=== PATIENT | female | born 1995 | race African-American/Black ===

== ENCOUNTER 2021-08-01 22:18 | Emergency (ER) | payer OTHER, SELFPAY ==
--- NOTE | ~2021-08-01 | US_ITS ---
EXAMINATION: US OB <=14 wk fetus w TV DATE: 08/02/2021 01:05 INDICATION: Left pelvic pain. TECHNIQUE: Real-time transabdominal and transvaginal pelvic ultrasound was performed. COMPARISON: None. FINDINGS: TRANSABDOMINAL ULTRASOUND: The uterus measures 7.3 x 5.0 x 5.9 cm. TRANSVAGINAL ULTRASOUND: There is no visible intrauterine gestational sac. The endometrial complex me asures 13 mm in thickness. The right ovary measures 2.9 x 1.7 x 1.6 cm. The left ovary measures 4.4 x 2.9 x 2.5 cm. There is a small volume of free fluid in the pelvis. IMPRESSION: 1. No visible intrauterine gestational sac, which may be normal in early . Spontaneous abor tion and ectopic are not excluded. Serial beta hCGs are recommended. Reviewed, dictated and finalized at location A. [facility] IMPRESSION: 1. No visible intrauterine gestational sac, which may be normal in early pregn zachary. Spontaneous and ectopic are not excluded. Serial beta hCGs are recommended.
[2021-08-01 22:29] VITALS: BP 153/104; PULSE 87; RESP 17; TEMP 37.1; O2SAT 100
--- NOTE | 2021-08-01 22:44 | ED.ABDPAIN ---
HPI - Abdominal Pain General Chief Complaint: Abdominal Pain Stated Complaint: lt lower abd pain x 2 days Time Seen by Provider: 08/01/21 22:23 Source: patient Mode of arrival: ambulatory Limitations: no limitations History of Present Illness HPI narrative: Pt is a 25 y/o female, PMHx of ovarian cysts, presents to ED via POV with C/O intermittent left suprapubic abdominal pain that is sharp in quality, onset of symptoms two days ago. She denies associated fevers or chills, NV or urinary discomfort. She has no abnormal vaginal discharge and she does not believe she is . Her LMP was 07/01/2021 and she is on the control patch. This afternoon, she did have one episode of diarrhea. This is the only loose stool she has experienced and she denies hematochezia or melena .She has no additional associated symptoms and she denies modifying factors. MD elicited complaint: abdominal pain Location: suprapubic (left) Severity: moderate Quality: sharp Migration to: no migration Exacerbating factors: nothing Relieving factors: nothing Associated symptoms: diarrhea Related Data Date of Last Menstrual Period: 07/01/21 Hx Last Menstrual Period: 07/01/2021 Allergies Allergy/AdvReac Type Severity Reaction Status Date / Time No Known Allergies Allergy Unverified 05/01/18 15:49 Review of Systems Review of Systems: refer to HPI Genitourinary: Genitourinary: Reports no additional female genitourinary complaints and Reports as per HPI Exam Const: General: healthy appearing, no acute distress and alert Nutritional Appearance: obese Orientation/consciousness: patient oriented x3 HENMT: Head: normal to inspection Eyes: Pupils: Equal, round and reactive pupils present Neck: Neck: normal visual inspection Chest: Chest palpation & inspection: normal inspection of the chest Resp: Effort & Inspection: normal respiratory effort Auscultation: clear to auscultation bilaterally Cardio: Rate: regular rate GI: GI Palp: Yes Soft to palpation Percussion: Yes normal to percussion Auscultation: normal bowel sounds Other: No TTP over the adnexa or suprapubic abdomen. No rebound TTP, No CVA TTP : General: Yes no CVA tenderness Back/Spine/Pelvis: Back: no CVA tenderness Skin: General skin exam: normal color Rashes: no rashes Neuro: General: patient oriented x3, moves all extremities, no meningeal signs, no focal motor deficits and CN's II-XI intact bilaterally Cranial nerves: Yes Nystagmus not present Extrem: General: normal to inspection Psych: Mental Status: mental status grossly normal Affect: normal affect Attitude: cooperative Course Course Emergency Course: 0030: Pt's pain is controlled without intervention. UPT positive, beta quant added, US ordered to R/O ectopic given left unilateral, suprapubic abdominal pain; results pending. 0120: US report received and reviewed: no intrauterine identified, recommend FU US with beta HCG levels. Moderate pelvic free fluid, suspected left ovarian corpus luteal cyst measuring 2.1X2.1X1.6 cm. OBGYN personalized living manager for [facility] for Dr Wise paged. 0146: Pt is endorsed to Dr Wise. He requests a progesterone level prior to allowing the patient to return home; as she is hemodynamically stable and in no acute pain. SHe is advised of US report and suggestions made by Dr Wise, including FU beta HCG in 2 days, returning to the ER or proceeding to [facility] if abdominal pain worsens or becomes constant or if she has any vaginal bleeding/worsening symptoms. Pt is agreeable with plan. Vital Signs Vital signs: Vital Signs Temperature 37.1 C 08/01/21 22:29 Pulse Rate 87 08/01/21 22:29 Respiratory Rate 17 08/01/21 22:29 Blood Pressure 153/104 H 08/01/21 22:29 Pulse Oximetry 100 08/01/21 22:29 Temperature 37.1 C 08/01/21 22:29 Pulse Rate 87 08/01/21 22:29 Respiratory Rate 17 08/01/21 22:29 Blood Pressure 153/104 H 08/01/21 22:29 Pulse Oximetry 100 08/01/21 22:29
[2021-08-01 22:48] LABS: Basophils Absolute Auto 0.1 K/mm3 (0.0-0.1); Basophils Percent Auto 0.7 % (0.2-1.2); Eosinophils Absolute Auto 0.3 K/mm3 (0-0.3); Eosinophils Percent Auto 3.5 % (0-4.4); Hemoglobin 13.4 g/dL (12.0-15.0); Immature Granulocyte Absolute 0.02 K/mm3 (0.00-0.031); Immature Granulocyte Percent A 0.2 % (0-0.5); Lymphocytes Absolute Auto 2.67 K/mm3 (0.9-3.2); Lymphocytes Percent Auto 31.3 % (18.3-44.2); Mean Corpuscular HGB Conc 34.4 g/dl (32-36); Mean Corpuscular Hemoglobin 30.7 pg (26-34); Mean Corpuscular Volume 89.2 fl (80-100); Mean Platelet Volume 10.1 fl (7.4-10.4); Monocytes Absolute Auto 0.6 K/mm3 (0.1-0.6); Neutrophils Absolute Auto 4.9 K/mm3 (1.3-6.7); Neutrophils Percent Auto 57.3 % (45.5-73.1); Platelet Count Result 423 k/mm3 (150-375); Red Blood Count 4.37 M/mm3 (4.2-5.4); Red Cell Distribution Width 12.2 % (11.5-14.5); White Blood Count 8.5 K/mm3 (4.5-10.0)
[2021-08-01 22:53] LABS: Add Urine Microscopic? YES; Appearance Urine Clear (Clear); Bilirubin Urine Negative (Negative); Blood Urine 1+ (Negative); Color Urine Yellow (Yellow); Glucose Urine UA Negative (Negative); Ketones Urine Trace mg/dL (Negative); Leukocyte Esterase Ur Negative LEU/UL (Negative); Mucus Urine Rare /lpf; Nitrate Urine Negative (Negative); Protein Urine Negative (Negative); RBC Urine 0-2 /hpf (0-2); Specific Grav Ur 1.021 (1.001-1.035); Urobilinogen Urine Negative mg/dL (<2.0); WBC Urine 0-3 /hpf
[2021-08-01 23:03] LABS: Squamous Epithelial Cell Urine Rare /hpf (Few)
[2021-08-01 23:25] LABS: INR 1.1; Prothrombin Time 13.6 Seconds (11.1-14.7)
[2021-08-01 23:40] LABS: Alanine Aminotransferase 19 U/L (4-35); Albumin Level 4.7 g/dL (3.5-5.1); Alkaline Phosphatase 45 U/L (38-126); Anion Gap 7 mmol/L (8-16); Aspartate Amino Transferase 33 U/L (14-36); Bilirubin,Total 1.1 mg/dL (0.2-1.3); Blood Urea Nitrogen 15 mg/dL (7-17); Calcium 9.6 mg/dL (8.4-10.2); Carbon Dioxide 24 mmol/L (22-30); Chloride 105 mmol/L (98-107); Estimated Glomerular Filt Rate > 60; Glucose 83 mg/dL (65-110); Lipase 125 U/L (23-300); Potassium 3.7 mmol/L (3.4-5.0); Sodium 136 mmol/L (137-145)
[2021-08-02 02:14] VITALS: BP 138/88; PULSE 81; RESP 20; TEMP 37.2; O2SAT 100
[2021-08-02 02:16] VITALS: BP 138/88; PULSE 81; RESP 20; TEMP 37.2; O2SAT 100
[2021-08-05 07:54] LABS: Progesterone 40.4 ng/mL (***)
== END 2021-08-02 02:19 | disposition home or self-care (01) ==
PROVIDERS: Emergency Provider Nurse Practitioner Family
DX: O20.0 Threatened abortion (principal); Z3A.00 Weeks of gestation of pregnancy not specified
CPT/HCPCS: 36415; 76801; 76817; 80053; 81001; 81025; 83690; 84144; 84702; 85025; 85610; 99284

== ENCOUNTER 2022-03-31 15:15 | Emergency (ER) | payer SELFPAY ==
[2022-03-31 15:19] VITALS: BP 155/72; PULSE 98; RESP 22; TEMP 36.2; O2SAT 100
--- NOTE | 2022-03-31 15:50 | PC.NURSE ---
Pt to INTAKE desk and states she is going somewhere else due to wait time. Pt ambulated out in NAD w/ steady gait.
== END 2022-03-31 19:31 | disposition left against medical advice (07) ==
LOC: ANHED 15:53
DX: T22.012A Burn of unspecified degree of left forearm, initial encounter (principal)
CPT/HCPCS: 99199